=== PATIENT | female | born 1965 | race Caucasian/White ===

== ENCOUNTER 2016-09-29 16:50 | Emergency (ER) | payer MEDICAID ==
[2016-09-29 17:05] VITALS: BP 145/89; BMI 21.1
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
== END 2016-09-29 18:45 | disposition home or self-care (01) ==
LOC: ER 17:16
DX: T86.821 Skin graft (allograft) (autograft) failure (principal)
CPT/HCPCS: 99281; 99282